=== PATIENT | male | born 1965 | race Caucasian/White ===

== ENCOUNTER 2017-02-10 12:47 | Observation (INO) ==
[2017-02-10] MEDS ORDERED: Ketorolac 30 MG/ML VIAL IVP ONE (13:03)
[2017-02-10] MEDS ORDERED: 0.9 % Sodium Chloride 1,000 ML IVC ONE (13:03)
[2017-02-10] MEDS ORDERED: Ondansetron 4 MG/2 ML VIAL IVP ONE (13:03)
--- NOTE | 2017-02-10 13:05 | Emergency Department Note ---
Disposition Clinical Impression: UTI (urinary tract infection) Disposition: Admitted As Inpatient Condition: Fair Male Urogenital HPI - General Chief complaint: ED Urogenital-Male Stated complaint: R flank pain & dizzy Time Seen by Provider: 02/10/17 12:54 Source: patient Mode of arrival: ambulatory Limitations: no limitations Nursing Notes Reviewed: Yes Vital Signs Reviewed: Yes - History of Present Illness HPI Narrative: 51-year-old paraplegic comes in complaining of suprapubic pain lightheadedness and dizziness when he changes positions especially sitting up he has been fairly healthy he states has not had a urinary tract infection at least a year or hospitalization as result of that he states this Pressure in the bladder area Pressure in the Flank Region Denies Numbness Tingling Weakness or Any New Loss Sensation Denies Any Additional Complaints at This Time Pt Subjective Complaint: dysuria Onset (ago): day(s) Duration: constant Location: other (pelvic pressure) Severity: moderate Severity scale (1-10): 5 Quality: aching Improves with: none Worsens with: none other ([place] cath) Reports: nausea/vomiting, other (weakness dizziness). Denies: discharge, swelling, mass, rash, urinary retention, hematuria, dysuria, fever - Related Data Home Medications Medication Instructions Recorded Confirmed Cranberry Fruit Extract [Cranberry] 500 mg PO BID 08/21/15 02/10/17 Docusate [Colace] 100 mg PO DAILY PRN 08/21/15 02/10/17 Ginseng [Panax Ginseng] 200 mg PO DAILY 08/21/15 02/10/17 Polyethylene Glycol 3350 [MiraLAX] 17 gm PO DAILY PRN 08/21/15 02/10/17 Multivitamin [Multi-Day Vitamins] 1 tab PO DAILY 01/02/16 02/10/17 Oxybutynin [Ditropan] 5 mg PO TID 04/02/16 02/10/17 Ezetimibe [Zetia] 10 mg PO DAILY 06/04/16 02/10/17 Cholecalciferol (D-3) [Vitamin D] 1,000 unit PO DAILY 09/27/16 02/10/17 Allergies Allergy/AdvReac Type Severity Reaction Status Date / Time ciprofloxacin [From Cipro] AdvReac Vomiting Verified 09/27/16 12:14 All systems ED: reviewed and negative except as stated. Constitutional: Reports: fever, weakness. Denies: chills Eyes: Denies: eye pain ENT ED: Denies: ear pain Cardiovascular: Denies: chest pain, palpitations Respiratory: Denies: cough, dyspnea Gastrointestinal: Reports: abdominal pain. Denies: nausea, vomiting Genitourinary: Reports: dysuria Musculoskeletal: Reports: back pain Integumentary: Denies: rash Neurological: Reports: weakness. Denies: headache Psychiatric: Denies: anxiety Endocrine: Denies: fatigue Hematological/Lymphatic: Denies: easy bleeding Allergic/Immunologic: Denies: facial swelling Past Medical History - Past Medical History Attestation: Yes The following information was validated with the patient. Source: patient, old records reviewed, nursing notes reviewed Medical history: Reports: hyperlipidemia, other Surgical history: Reports: sinus surgery, other Psychiatric history: Reports: no psych history - Social History Smoking Status: Former smoker Smokeless Tobacco Status: No Alcohol use: Reports: none Drug use: Reports: none Physical Exam - General Limitations: no limitations General appearance: alert, in no apparent distress - Head Head exam: atraumatic, normocephalic, normal inspection - Eye Eye exam: Present: normal appearance, PERRL, EOMI - ENT ENT exam: normal exam, normal oropharynx, mucous membranes moist, TM's normal bilaterally, normal external ear exam - Neck Neck exam: Present: normal inspection, full ROM, trachea midline - Chest Chest inspection: Present: normal inspection, symmetric chest wall rise - Respiratory Respiratory exam: Present: normal lung sounds bilaterally - Cardiovascular Cardiovascular exam: Present: regular rate, normal rhythm, normal heart sounds - Abdominal Exam Abdominal Exam: Present: soft, Non-Tender. Absent: mass, pulsatile mass - Male exam: Present: other ([place] cath in place well kept) - Extremities Exam Extremities exam: Present: normal inspection, normal capillary refill, other ( paraplegic). Absent: tenderness - Neurological Exam Neurological exam: Present: alert, oriented X3, CN II-XII intact - Psychiatric Psychiatric exam: Present: normal affect, normal mood - Skin Skin exam: Present: warm, dry, intact, normal color Course Course Narrative: lower abd pain and flank painwears a cndom cath hasnt had an infection in a while feels week looks good labs and meds ordered Vital Signs Temperature 97.7 F 02/10/17 12:49 Pulse Rate 91 02/10/17 12:49 Respiratory Rate 18 02/10/17 12:49 Blood Pressure 152/88 02/10/17 12:49 O2 Sat by Pulse Oximetry 99 02/10/17 12:49 Temperature 99.6 F 02/10/17 18:57 Pulse Rate 90 02/10/17 18:57 Respiratory Rate 18 02/10/17 18:57 Blood Pressure 110/69 02/10/17 18:57 O2 Sat by Pulse Oximetry 96 02/10/17 18:57 Oxygen Delivery Oxygen Delivery Room Air Urogenital-Male - Differential Diagnosis Likely: urinary tract infection - Medical Records Medical records reviewed: Yes I reviewed the patient's medical records. - Lab Data Lab results reviewed: Yes I reviewed the patient's lab results. Result diagrams: 02/10/17 13:15 02/10/17 13:15 Lab Results 02/10/17 02/10/17 02/10/17 Range/Units 13:14 13:15 13:15 WBC 14.4 H (4.3-11.1) K/mcL RBC 4.83 (4.19-5.50) M/mcL Hgb 14.9 (12.9-16.9) g/dL Hct 42.1 (37.5-50.1) % MCV 87.2 (83.0-100.0) fL MCH 30.8 (28.0-33.3) pg MCHC 35.4 (31.6-35.5) g/dL RDW 12.2 (11.5-14.5) % Plt Count 240 (140-400) K/mcL MPV 9.5 (9.4-12.4) fL Immature Gran % 0.7 (0-4) % Seg Neutrophils % 81.6 % Lymphocytes % 8.0 % Monocytes % 9.4 % Eosinophils % 0.1 % Basophils % 0.2 % Neutrophils # 11.8 H (1.6-8.9) K/mcL Lymphocytes # 1.2 (0.6-4.6) K/mcL Monocytes # 1.4 H (0.0-1.3) K/mcL Eosinophils # 0.0 (0.0-0.6) K/mcL Basophils # 0.0 (0.0-0.2) K/mcL PT 13.2 H (9.4-12.1) Seconds INR 1.2 APTT 31.2 (26.0-36.0) Seconds VBG Lactic Acid (0.5-2.2) mmol/L Sodium (136-145) mEq/L Potassium (3.5-4.5) mEq/L Chloride (98-109) mEq/L Carbon Dioxide (19-29) mEq/L BUN (8-26) mg/dL Creatinine (0.72-1.25) mg/dL Est GFR ( Amer) (> 60) Est GFR (Non-Af Amer) (> 60) BUN/Creatinine Ratio (6-26) Glucose (70-99) mg/dL Calculated Osmolality (280-300) Calcium (8.6-10.8) mg/dL Urine Color Yellow (Yellow) Urine Clarity Cloudy A (Clear) Urine pH 7.5 (5.0-8.0) pH Units Ur Specific [place] 1.015 (1.010-1.025) Urine Protein 100 H (Neg-Trace) mg/dL Urine Glucose (UA) Normal (Normal) mg/dL Urine Ketones Trace H (Negative) mg/dL Urine Blood Small H (Negative) Urine Nitrite Positive A (Negative) Urine Bilirubin Negative (Negative) Urine Urobilinogen 2.0 H (Normal) mg/dL Ur Leukocyte Esterase Moderate H (Negative) Urine Microscopic RBC 3-5 H (0-3) per hpf Urine Microscopic WBC TNTC H (0-3) per hpf Ur Squamous Epith Cells Few (None-Few) per lpf Urine Bacteria Many H (None-Few) per hpf Urine Mucus Moderate H (Few) Ur Culture Indicated? YES A (NO) 02/10/17 02/10/17 Range/Units 13:15 13:15 WBC (4.3-11.1) K/mcL RBC (4.19-5.50) M/mcL Hgb (12.9-16.9) g/dL Hct (37.5-50.1) % MCV (83.0-100.0) fL MCH (28.0-33.3) pg MCHC (31.6-35.5) g/dL RDW (11.5-14.5) % Plt Count (140-400) K/mcL MPV (9.4-12.4) fL Immature Gran % (0-4) % Seg Neutrophils % % Lymphocytes % % Monocytes % % Eosinophils % % Basophils % % Neutrophils # (1.6-8.9) K/mcL Lymphocytes # (0.6-4.6) K/mcL Monocytes # (0.0-1.3) K/mcL Eosinophils # (0.0-0.6) K/mcL Basophils # (0.0-0.2) K/mcL PT (9.4-12.1) Seconds INR APTT (26.0-36.0) Seconds VBG Lactic Acid 1.5 (0.5-2.2) mmol/L Sodium 137 (136-145) mEq/L Potassium 4.0 (3.5-4.5) mEq/L Chloride 102 (98-109) mEq/L Carbon Dioxide 23 (19-29) mEq/L BUN 11 (8-26) mg/dL Creatinine 0.82 (0.72-1.25) mg/dL Est GFR ( Amer) > 60 (> 60) Est GFR (Non-Af Amer) > 60 (> 60) BUN/Creatinine Ratio 13 (6-26) Glucose 135 H (70-99) mg/dL Calculated Osmolality 285 (280-300) Calcium 9.5 (8.6-10.8) mg/dL Urine Color (Yellow) Urine Clarity (Clear) Urine pH (5.0-8.0) pH Units Ur Specific [place] (1.010-1.025) Urine Protein (Neg-Trace) mg/dL Urine Glucose (UA) (Normal) mg/dL Urine Ketones (Negative) mg/dL Urine Blood (Negative) Urine Nitrite (Negative) Urine Bilirubin (Negative) Urine Urobilinogen (Normal) mg/dL Ur Leukocyte Esterase (Negative) Urine Microscopic RBC (0-3) per hpf Urine Microscopic WBC (0-3) per hpf Ur Squamous Epith Cells (None-Few) per lpf Urine Bacteria (None-Few) per hpf Urine Mucus (Few) Ur Culture Indicated? (NO) Critical Care Time Critical Care Time: No
[2017-02-10 13:18] LABS: Bilirubin,Urine Negative (Negative); Blood,Urine Small (Negative); Clarity,Urine Cloudy (Clear); Color,Urine Yellow (Yellow); Glucose,Urine (UA) Normal (Normal); Ketones,Urine Trace mg/dL (Negative); Leukocyte Esterase,Urine Moderate (Negative); Nitrite,Urine Positive (Negative); PH,Urine 7.5 pH Units (5.0-8.0); Protein,Urine 100 mg/dL (Neg-Trace); Specific Gravity,Urine 1.015 (1.010-1.025)
[2017-02-10 13:27] LABS: Bacteria,Urine Many per hpf (None-Few); Mucus,Urine Moderate (Few); Squamous Epithelial Cell,Urine Few per lpf (None-Few); WBC,Urine TNTC per hpf (0-3)
[2017-02-10 13:45] LABS: Basophils % 0.2 %; Eosinophils % 0.1 %; Hematocrit 42.1 % (37.5-50.1); Hemoglobin 14.9 g/dL (12.9-16.9); Immature Granulocytes % 0.7 % (0-4); Lymphocytes # 1.2 K/mcL (0.6-4.6); Mean Corpuscular HGB Conc 35.4 g/dL (31.6-35.5); Mean Corpuscular Hemoglobin 30.8 pg (28.0-33.3); Mean Corpuscular Volume 87.2 fL (83.0-100.0); Mean Platelet Volume 9.5 fL (9.4-12.4); Monocytes # 1.4 K/mcL (0.0-1.3); Monocytes % 9.4 %; Platelet Count 240 K/mcL (140-400); Red Blood Count 4.83 M/mcL (4.19-5.50); Red Cell Distribution Width 12.2 % (11.5-14.5); Segmented Neutrophils % 81.6 %
[2017-02-10 13:47] LABS: INR 1.2; Prothrombin Time 13.2 Seconds (9.4-12.1)
[2017-02-10 13:50] LABS: Activated Partial Thrombo Time 31.2 Seconds (26.0-36.0)
[2017-02-10 13:54] LABS: Neutrophils # 11.8 K/mcL (1.6-8.9)
[2017-02-10 13:55] LABS: BUN/Creatinine Ratio 13 (6-26); Blood Urea Nitrogen 11 mg/dL (8-26); Calcium 9.5 mg/dL (8.6-10.8); Carbon Dioxide 23 mEq/L (19-29); Chloride 102 mEq/L (98-109); Glucose 135 mg/dL (70-99); Osmolality,Calculated 285 (280-300); Sodium 137 mEq/L (136-145); eGFR For African Americans > 60 (> 60); eGFR For Non-African Americans > 60 (> 60)
[2017-02-10] MEDS ORDERED: *HR* HYDROcodone/Acet 5/325 mg TABLET PO SCH (15:36)
[2017-02-10] MEDS ORDERED: Naloxone 0.4 MG/ML INJ IVP PRN (15:36)
[2017-02-10] MEDS ORDERED: *HR* HYDROcodone/Acet 5/325 mg TABLET PO PRN (16:16)
[2017-02-10] MEDS: 0.9 % Sodium Chloride 1,000 ML IVC SCH (16:50)
[2017-02-11] MEDS: 0.9 % Sodium Chloride 1,000 ML IVC SCH ×2 (03:49→09:43)
[2017-02-11 06:06] LABS: Basophils % 0.4 %; Eosinophils # 0.1 K/mcL (0.0-0.6); Eosinophils % 0.6 %; Hematocrit 35.5 % (37.5-50.1); Hemoglobin 12.7 g/dL (12.9-16.9); Immature Granulocytes % 0.7 % (0-4); Lymphocytes # 1.4 K/mcL (0.6-4.6); Lymphocytes % 13.3 %; Mean Corpuscular HGB Conc 35.8 g/dL (31.6-35.5); Mean Corpuscular Hemoglobin 31.4 pg (28.0-33.3); Mean Corpuscular Volume 87.9 fL (83.0-100.0); Mean Platelet Volume 9.7 fL (9.4-12.4); Monocytes % 9.7 %; Neutrophils # 7.8 K/mcL (1.6-8.9); Platelet Count 208 K/mcL (140-400); Red Blood Count 4.04 M/mcL (4.19-5.50); Red Cell Distribution Width 12.2 % (11.5-14.5); Segmented Neutrophils % 75.3 %
[2017-02-11 06:11] LABS: INR 1.3; Prothrombin Time 13.6 Seconds (9.4-12.1)
[2017-02-11 06:23] LABS: BUN/Creatinine Ratio 13 (6-26); Blood Urea Nitrogen 10 mg/dL (8-26); Calcium 8.5 mg/dL (8.6-10.8); Carbon Dioxide 20 mEq/L (19-29); Chloride 108 mEq/L (98-109); Glucose 111 mg/dL (70-99); Osmolality,Calculated 284 (280-300); Sodium 137 mEq/L (136-145); eGFR For African Americans > 60 (> 60); eGFR For Non-African Americans > 60 (> 60)
[2017-02-11 06:38] VITALS: BP 124/66
[2017-02-11 07:01] LABS: Activated Partial Thrombo Time 29.6 Seconds (26.0-36.0)
[2017-02-11] MEDS ORDERED: GINSENG PO SCH (09:00)
[2017-02-11] MEDS ORDERED: (Cranberry Fruit Extract [Cranberry] 500 MG) PO SCH (09:00)
[2017-02-11] MEDS ORDERED: Multivit/Ca/Min/Fe/FA 1 TAB TABLET PO SCH (09:00)
[2017-02-11] MEDS ORDERED: (Ezetimibe [Zetia] 10 MG) PO SCH (09:00)
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
--- NOTE | 2017-02-11 11:51 | Discharge Summary ---
Date of Encounter: 02/11/17 Time of Encounter: 11:05 - Discharge Diagnosis (1) UTI (urinary tract infection) Priority: Primary Status: Acute Qualifiers: Urinary tract infection type: site unspecified Hematuria presence: with hematuria Qualified Code(s): N39.0 - Urinary tract infection, site not specified; R31.9 - Hematuria, unspecified - Discharge Medications Prescriptions: Cefixime [Suprax] 400 mg PO DAILY #5 capsule Lactobacillus [Culturelle] 1 each PO BID #10 cap.[email or web address] Home Medications: Cranberry Fruit Extract [Cranberry] 500 mg PO BID 08/21/15 [History] Docusate [Colace] 100 mg PO DAILY PRN 08/21/15 [History] Ginseng [Panax Ginseng] 200 mg PO DAILY 08/21/15 [History] Polyethylene Glycol 3350 [MiraLAX] 17 gm PO DAILY PRN 08/21/15 [History] Multivitamin [Multi-Day Vitamins] 1 tab PO DAILY 01/02/16 [History] Oxybutynin [Ditropan] 5 mg PO TID 04/02/16 [History] Ezetimibe [Zetia] 10 mg PO DAILY 06/04/16 [History] Cholecalciferol (D-3) [Vitamin D] 1,000 unit PO DAILY 09/27/16 [History] Cefixime [Suprax] 400 mg PO DAILY #5 capsule 02/11/17 [Rx] Lactobacillus [Culturelle] 1 each PO BID #10 cap.sprink 02/11/17 [Rx] Allergies/Adverse Reactions: Allergies ciprofloxacin [From Cipro] Adverse Reaction (Verified 09/27/16 12:14) Vomiting Date of admission: 02/10/17 15:16 Primary care physician: Deangelo Arnold MD Consults: 02/10/17 16:28 Consult to Driver Material Handler [CONS] Routine Reason for SW Consult: Discharge planning - Patient Status Disposition: Home, Self-Care Condition: Fair Functional capacity at discharge: wheelchair bound Overall status at discharge: patient is progressing back to baseline - Discharge Instructions Follow Up With: Deangelo Arnold MD [Primary Care Provider] - 1 week - Diet and Activity Activity: resume usual activities as tolerated Diet: advance to your usual diet Hospital course: Mr. Henson is a 51 year old male who came to emergency room stating he had symptoms of UTI with discomfort in his right suprapubic area. He also felt lightheaded and dizzy. He was evaluated in emergency room and felt to have UTI. He was admitted to [facility] for ongoing care needs. Initial orders were written by the emergency room physician. I saw him on February 11 and performed the history and physical and discharge. He was given IV fluids and Rocephin through emergency room. By the time I saw him he felt significantly improved. Follow-up lab work showed normalization of WBC and left shift on the differential. He felt stable for discharge home which I felt was reasonable. He will continue with Suprax 400 mg daily for 5 days with probiotic. He will follow with his PCP and/or urologist within 1 week. He will be discharged home by ambulette. - Time Spent with Patient Total time spent providing and/or coordinating discharge services: - Constitutional Vitals: Temp Pulse Resp BP Pulse Ox 98.0 F 82 16 124/66 96 02/11/17 06:36 02/11/17 06:36 02/11/17 06:36 02/11/17 06:36 02/11/17 06:36
== END 2017-02-11 13:00 | disposition home or self-care (01) ==
LOC: EMEROOPIK 12:47 → INPPIK 12:47
PROVIDERS: ADMIT Internal Medicine; ATTEND Internal Medicine

== ENCOUNTER 2017-03-14 12:17 | Observation (INO) ==
[2017-03-14] MEDS ORDERED: 0.9 % Sodium Chloride 1,000 ML IVC ONE (12:42)
--- NOTE | 2017-03-14 12:51 | Emergency Department Note ---
Disposition Clinical Impression: Urinary tract infection Qualifiers: Urinary tract infection type: acute cystitis Hematuria presence: with hematuria Qualified Code(s): N30.01 - Acute cystitis with hematuria Disposition: Admitted As Inpatient Condition: Good Time of Disposition: 14:04 Male Urogenital HPI - General Chief complaint: ED Urogenital-Male Stated complaint: possible UTI Source: patient Limitations: no limitations - History of Present Illness HPI Narrative: Patient presents to the emergency department for evaluation of subjective fever and chills with nausea and dizziness and foul-smelling urine with some right- sided abdominal pain. This is a 51-year-old paraplegic with a history of UTI the presents with the symptoms since this morning. He denies vomiting. He wears a [place] catheter as well as self. - Related Data Home Medications Medication Instructions Recorded Confirmed Cranberry Fruit Extract [Cranberry] 500 mg PO BID 08/21/15 03/14/17 Docusate [Colace] 100 mg PO DAILY PRN 08/21/15 03/14/17 Ginseng [Panax Ginseng] 200 mg PO DAILY 08/21/15 03/14/17 Polyethylene Glycol 3350 [MiraLAX] 17 gm PO DAILY PRN 08/21/15 03/14/17 Multivitamin [Multi-Day Vitamins] 1 tab PO DAILY 01/02/16 03/14/17 Oxybutynin [Ditropan] 5 mg PO TID 04/02/16 03/14/17 Ezetimibe [Zetia] 10 mg PO DAILY 06/04/16 03/14/17 Cholecalciferol (D-3) [Vitamin D] 1,000 unit PO DAILY 09/27/16 03/14/17 Allergies Allergy/AdvReac Type Severity Reaction Status Date / Time ciprofloxacin [From Cipro] AdvReac Vomiting Verified 09/27/16 12:14 Constitutional: Reports: fever, chills, weakness Eyes: Denies: vision change Cardiovascular: Denies: chest pain, palpitations Respiratory: Denies: cough, dyspnea Gastrointestinal: Reports: as per HPI. Denies: vomiting Genitourinary: Reports: as per HPI Integumentary: Denies: rash Neurological: Denies: headache, confusion Past Medical History - Past Medical History Medical history: Reports: hyperlipidemia, other Surgical history: Reports: sinus surgery, other Psychiatric history: Reports: no psych history - Social History Smoking Status: Former smoker Smokeless Tobacco Status: No Alcohol use: Reports: none Drug use: Reports: none Physical Exam - General Limitations: no limitations General appearance: alert, in no apparent distress - Head Head exam: normal inspection - Eye Eye exam: Present: normal appearance. Absent: scleral icterus - ENT ENT exam: normal exam, normal oropharynx, mucous membranes moist, normal external ear exam - Neck Neck exam: Absent: meningismus - Respiratory Respiratory exam: Present: normal lung sounds bilaterally - Cardiovascular Cardiovascular exam: Present: regular rate, normal rhythm, normal heart sounds - Neurological Exam Neurological exam: Present: alert, oriented X3 - Psychiatric Psychiatric exam: Present: normal affect, normal mood - Skin Skin exam: Present: warm, dry, intact, normal color Course Vital Signs Temperature 98.4 F 03/14/17 12:19 Pulse Rate 95 03/14/17 12:19 Respiratory Rate 18 03/14/17 12:19 Blood Pressure 115/77 03/14/17 12:19 O2 Sat by Pulse Oximetry 96 03/14/17 12:19 Temperature 98.4 F 03/14/17 12:19 Pulse Rate 95 03/14/17 13:40 Respiratory Rate 18 03/14/17 13:40 Blood Pressure 115/80 03/14/17 13:40 O2 Sat by Pulse Oximetry 98 03/14/17 13:40 Oxygen Delivery Oxygen Delivery Room Air Urogenital-Male - Lab Data Lab results reviewed: Yes I reviewed the patient's lab results. Result diagrams: 03/14/17 13:23 03/14/17 13:23 Lab Results 03/14/17 03/14/17 03/14/17 Range/Units 12:58 13:23 13:23 WBC 8.6 (4.3-11.1) K/mcL RBC 4.82 (4.19-5.50) M/mcL Hgb 14.9 (12.9-16.9) g/dL Hct 41.5 (37.5-50.1) % MCV 86.1 (83.0-100.0) fL MCH 30.9 (28.0-33.3) pg MCHC 35.9 H (31.6-35.5) g/dL RDW 11.8 (11.5-14.5) % Plt Count 231 (140-400) K/mcL MPV 9.2 L (9.4-12.4) fL Immature Gran % 0.3 (0-4) % Seg Neutrophils % 73.3 % Lymphocytes % 17.2 % Monocytes % 7.3 % Eosinophils % 1.6 % Basophils % 0.3 % Neutrophils # 6.3 (1.6-8.9) K/mcL Lymphocytes # 1.5 (0.6-4.6) K/mcL Monocytes # 0.6 (0.0-1.3) K/mcL Eosinophils # 0.1 (0.0-0.6) K/mcL Basophils # 0.0 (0.0-0.2) K/mcL VBG Lactic Acid (0.5-2.2) mmol/L Sodium 140 (136-145) mEq/L Potassium 4.0 (3.5-4.5) mEq/L Chloride 105 (98-109) mEq/L Carbon Dioxide 20 (19-29) mEq/L BUN 13 (8-26) mg/dL Creatinine 0.78 (0.72-1.25) mg/dL Est GFR ( Amer) > 60 (> 60) Est GFR (Non-Af Amer) > 60 (> 60) BUN/Creatinine Ratio 17 (6-26) Glucose 90 (70-99) mg/dL Calculated Osmolality 290 (280-300) Calcium 9.5 (8.6-10.8) mg/dL Urine Color Yellow (Yellow) Urine Clarity Cloudy A (Clear) Urine pH 6.0 (5.0-8.0) pH Units Ur Specific [place] 1.025 (1.010-1.025) Urine Protein >=300 H (Neg-Trace) mg/dL Urine Glucose (UA) Normal (Normal) mg/dL Urine Ketones Negative (Negative) mg/dL Urine Blood Large H (Negative) Urine Nitrite Negative (Negative) Urine Bilirubin Negative (Negative) Urine Urobilinogen Normal (Normal) mg/dL Ur Leukocyte Esterase Moderate H (Negative) Urine Microscopic RBC TNTC H (0-3) per hpf Urine Microscopic WBC TNTC H (0-3) per hpf Ur Squamous Epith Cells Few (None-Few) per lpf Urine Bacteria Few (None-Few) per hpf Ur Culture Indicated? YES A (NO) 03/14/17 Range/Units 13:23 WBC (4.3-11.1) K/mcL RBC (4.19-5.50) M/mcL Hgb (12.9-16.9) g/dL Hct (37.5-50.1) % MCV (83.0-100.0) fL MCH (28.0-33.3) pg MCHC (31.6-35.5) g/dL RDW (11.5-14.5) % Plt Count (140-400) K/mcL MPV (9.4-12.4) fL Immature Gran % (0-4) % Seg Neutrophils % % Lymphocytes % % Monocytes % % Eosinophils % % Basophils % % Neutrophils # (1.6-8.9) K/mcL Lymphocytes # (0.6-4.6) K/mcL Monocytes # (0.0-1.3) K/mcL Eosinophils # (0.0-0.6) K/mcL Basophils # (0.0-0.2) K/mcL VBG Lactic Acid 1.4 (0.5-2.2) mmol/L Sodium (136-145) mEq/L Potassium (3.5-4.5) mEq/L Chloride (98-109) mEq/L Carbon Dioxide (19-29) mEq/L BUN (8-26) mg/dL Creatinine (0.72-1.25) mg/dL Est GFR ( Amer) (> 60) Est GFR (Non-Af Amer) (> 60) BUN/Creatinine Ratio (6-26) Glucose (70-99) mg/dL Calculated Osmolality (280-300) Calcium (8.6-10.8) mg/dL Urine Color (Yellow) Urine Clarity (Clear) Urine pH (5.0-8.0) pH Units Ur Specific [place] (1.010-1.025) Urine Protein (Neg-Trace) mg/dL Urine Glucose (UA) (Normal) mg/dL Urine Ketones (Negative) mg/dL Urine Blood (Negative) Urine Nitrite (Negative) Urine Bilirubin (Negative) Urine Urobilinogen (Normal) mg/dL Ur Leukocyte Esterase (Negative) Urine Microscopic RBC (0-3) per hpf Urine Microscopic WBC (0-3) per hpf Ur Squamous Epith Cells (None-Few) per lpf Urine Bacteria (None-Few) per hpf Ur Culture Indicated? (NO) ITS Impressions Abdomen/Pelvis CT 07/29/17 12:43 IMPRESSION: A Vera catheter within a partially collapsed urinary bladder. The urinary bladder appears somewhat dense suggesting thickened wall and/or dense contents. Evaluation is limited without intravenous contrast. Mild perivesical fat stranding. Correlation for cystitis is recommended. D/ / Daisy Calvo Cha, MD / Daisy Calvo Cha, MD Interpreting Provider: Daisy Calvo Cha, MD - Radiology Data Radiology results reviewed: Yes I reviewed the patient's radiology results.
[2017-03-14 13:02] LABS: Bilirubin,Urine Negative (Negative); Blood,Urine Large (Negative); Clarity,Urine Cloudy (Clear); Color,Urine Yellow (Yellow); Glucose,Urine (UA) Normal (Normal); Ketones,Urine Negative (Negative); Leukocyte Esterase,Urine Moderate (Negative); Nitrite,Urine Negative (Negative); Protein,Urine >=300 mg/dL (Neg-Trace); Specific Gravity,Urine 1.025 (1.010-1.025); Urobilinogen,Urine Normal (Normal)
[2017-03-14 13:30] LABS: Basophils % 0.3 %; Eosinophils # 0.1 K/mcL (0.0-0.6); Eosinophils % 1.6 %; Hematocrit 41.5 % (37.5-50.1); Hemoglobin 14.9 g/dL (12.9-16.9); Immature Granulocytes % 0.3 % (0-4); Lymphocytes # 1.5 K/mcL (0.6-4.6); Lymphocytes % 17.2 %; Mean Corpuscular HGB Conc 35.9 g/dL (31.6-35.5); Mean Corpuscular Hemoglobin 30.9 pg (28.0-33.3); Mean Corpuscular Volume 86.1 fL (83.0-100.0); Mean Platelet Volume 9.2 fL (9.4-12.4); Monocytes # 0.6 K/mcL (0.0-1.3); Monocytes % 7.3 %; Neutrophils # 6.3 K/mcL (1.6-8.9); Platelet Count 231 K/mcL (140-400); Red Blood Count 4.82 M/mcL (4.19-5.50); Red Cell Distribution Width 11.8 % (11.5-14.5); Segmented Neutrophils % 73.3 %
[2017-03-14 13:39] LABS: RBC,Urine TNTC per hpf (0-3); Squamous Epithelial Cell,Urine Few per lpf (None-Few); WBC,Urine TNTC per hpf (0-3)
[2017-03-14 13:41] LABS: Bacteria,Urine Few per hpf (None-Few)
[2017-03-14 13:47] LABS: BUN/Creatinine Ratio 17 (6-26); Blood Urea Nitrogen 13 mg/dL (8-26); Calcium 9.5 mg/dL (8.6-10.8); Carbon Dioxide 20 mEq/L (19-29); Chloride 105 mEq/L (98-109); Glucose 90 mg/dL (70-99); Osmolality,Calculated 290 (280-300); Sodium 140 mEq/L (136-145); eGFR For African Americans > 60 (> 60); eGFR For Non-African Americans > 60 (> 60)
[2017-03-14] MEDS ORDERED: Naloxone 0.4 MG/ML INJ IVP PRN (14:05)
[2017-03-14] MEDS: 0.9 % Sodium Chloride 1,000 ML IVC SCH (15:38)
[2017-03-14] MEDS ORDERED: NON-FORMULARY MEDICATION 1 EACH EACH (Cranberry Fruit Extract [Cranberry] 500 MG) PO SCH (21:00)
[2017-03-15] MEDS: 0.9 % Sodium Chloride 1,000 ML IVC SCH ×2 (00:24→08:21)
[2017-03-15] MEDS ORDERED: NON-FORMULARY MEDICATION 1 EACH EACH (Ezetimibe [Zetia] 10 MG) PO SCH (09:00)
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
--- NOTE | 2017-03-15 10:54 | Discharge Summary ---
Date of Encounter: 03/15/17 Time of Encounter: 10:00 - Discharge Diagnosis (1) Urinary tract infection Priority: Primary Status: Acute Qualifiers: Urinary tract infection type: acute cystitis Hematuria presence: with hematuria Qualified Code(s): N30.01 - Acute cystitis with hematuria - Discharge Medications Prescriptions: Cefixime [Suprax] 400 mg PO DAILY #7 capsule Lactobacillus [Culturelle] 1 each PO BID #14 cap.sprink Home Medications: Cranberry Fruit Extract [Cranberry] 500 mg PO BID 08/21/15 [History] Docusate [Colace] 100 mg PO DAILY PRN 08/21/15 [History] Ginseng [Panax Ginseng] 200 mg PO DAILY 08/21/15 [History] Polyethylene Glycol 3350 [MiraLAX] 17 gm PO DAILY PRN 08/21/15 [History] Multivitamin [Multi-Day Vitamins] 1 tab PO DAILY 01/02/16 [History] Oxybutynin [Ditropan] 5 mg PO TID 04/02/16 [History] Ezetimibe [Zetia] 10 mg PO DAILY 06/04/16 [History] Cholecalciferol (D-3) [Vitamin D] 1,000 unit PO DAILY 09/27/16 [History] Cefixime [Suprax] 400 mg PO DAILY #7 capsule 03/15/17 [Rx] Lactobacillus [Culturelle] 1 each PO BID #14 cap.sprink 03/15/17 [Rx] Allergies/Adverse Reactions: Allergies ciprofloxacin [From Cipro] Adverse Reaction (Verified 09/27/16 12:14) Vomiting Date of admission: 03/14/17 14:13 Primary care physician: Deangelo Arnold MD Consults: 03/14/17 16:56 Consult to [employer] [CONS] Routine Reason for SW Consult: Needs more catheter supplies after insurance coverage decreased. - Patient Status Disposition: Home, Self-Care Condition: Good Functional capacity at discharge: wheelchair bound Overall status at discharge: patient is progressing back to baseline - Discharge Instructions Follow Up With: Deangelo Arnold MD [Primary Care Provider] - 1 week Forms: ED Satisfaction Letter - Diet and Activity Activity: resume usual activities as tolerated Diet: advance to your usual diet Hospital course: Mr. Henson is a 51 year old male who came to emergency room stating he had UTI symptoms with fevers chills and nausea over the past 24 hours. He suspected he had UTI. He was evaluated in emergency room and diagnosed with UTI. He was admitted to [facility] for ongoing care needs. Initial orders were written by the emergency room physician. I saw him March 15 and performed a history physical and discharge. He was started empirically on Rocephin through emergency room. He remained afebrile during his hospital stay. When I saw him on March 15 I felt he was medically stable for discharge home. He will continue with Suprax and lactobacillus for 7 days after discharge. I encouraged him to have a conversation with his PCP and/or urologist about petitioning his insurance company for an appropriate increased number of catheters. He will also discuss use of antibiotics prophylactically for UTI prevention. He will discuss suprapubic catheter placement with his urologist. He will follow with his PCP Dr. Deangelo Arnold and/or urologist Dr. Gray within 1 week. - Time Spent with Patient Total time spent providing and/or coordinating discharge services: - Constitutional Vitals: Temp Pulse Resp BP Pulse Ox 98.4 F 80 20 130/81 98 03/15/17 06:43 03/15/17 06:43 03/15/17 06:43 03/15/17 06:43 03/15/17 06:43
[2017-03-15 11:14] VITALS: BP 142/92
== END 2017-03-15 13:15 | disposition home or self-care (01) ==
LOC: INPPIK 12:17 → EMEROOPIK 12:17 → INPPIK 14:19
PROVIDERS: ADMIT Emergency Medicine; ATTEND Internal Medicine